=== PATIENT | male | born 1985 | race Caucasian/White ===

== ENCOUNTER 2023-11-10 08:27 | Emergency (ER) | payer OTHER, SELFPAY ==
[2023-11-10 08:27] VITALS: BP 149/95; PULSE 67; RESP 14; TEMP 36.6; O2SAT 100; BMI 30.6
--- NOTE | 2023-11-10 08:35 | EDS_ITS ---
HPI History of Present Illness Chief Complaint: Dental Detail of Chief Complaint: Left facial swelling Informant: patient Narrative Narrative: Patient present secondary to left-sided facial swelling. He states he woke early this morning with fullness and some numbness in the left side of his face. He finally got up around 5 AM and states his swelling has slightly worsened since that time. He presents here at 830 for evaluation. He denies recent dental problems or dental pain. No new medications, foods, soaps. He went to urgent care who was concerned for angioedema and sent him to the emergency room. He states he felt well when he went to bed last night. No recent facial trauma. He denies tongue fullness or difficulty breathing/swallowing. PFSH PFSH Medical History no medical history no medical history Home Medications prednisone 20 mg tablet 60 mg (3 x 20 mg) PO DAILY #12 TABLETS 11/10/23 [Rx Last Taken Unknown] Allergy/AdvReac Type Severity Reaction Status Date / Time No Known Allergies Allergy Verified 11/10/23 08:33 Social History Smoking Status: Never smoker ROS ROS ED Constitutional Constitutional ED: Denies chills or fever(s) Eyes Eyes: Denies discharge from eye(s) ENT ENT ED: Reports other Details: Facial swelling ; Denies discharge from eye(s), rhinorrhea or sore throat Cardiovascular Cardiovascular: Denies chest pain or palpitations Respiratory/Chest Respiratory/Chest: Denies cough or dyspnea Gastrointestinal Gastrointestinal: Denies abdominal pain, nausea or vomiting Musculoskeletal Musculoskeletal: Denies back pain or extremity pain Integumentary Denies rash Neurologic Neurologic: Denies headache(s) or weakness Psychiatric Psychiatric: Denies anxiety or depression Allergic/Immunologic Allergic/Immunologic ED: Denies lip swelling or urticaria EXAM Physical Exam Const Vital Signs: 11/10/23 08:27 Temperature 97.9 F Temperature Source Temporal Pulse Rate 67 Respiratory Rate 14 Blood Pressure 149/95 H Blood Pressure Mean 113 Pulse Ox 100 Oxygen Delivery Method Room Air Positive well nourished and well developed General Appearance ED: well developed HEENT Reports moist mucous membranes HEENT Narrative: Intraoral examination reveals no dental decay, gum edema. No dental tenderness. Edema noted to the left cheek and into the lower lip. Eyes EOMs intact bilaterally Neck no lymphadenopathy Chest Wall inspection of chest normal and palpation of chest normal Resp normal respiratory effort and clear to auscultation bilaterally Cardio regular rate and regular rhythm GI non-tender Palpation: soft Extremity normal to inspection Neuro oriented x3 and no sensory deficits noted Motor Exam: strength 5/5 throughout Psych mental status grossly normal Skin no rashes or lesions noted MDM MDM MDM Narrative Medical decision making narrative: IV line will be established. Patient be given Benadryl, Pepcid, and Solu- Medrol. Treatment and Re-Evaluation :: Patient was observed for 2 hours after medications given with frequent rechecks. Swelling is improved at this time but not completely resolved. He does not know of any new exposures, but I encouraged him to watch at home for any different foods or medications that he may have been exposed to. At this time it does not appear that he has a dental infection causing his symptoms. I will write him for 4 additional days of steroids. He will use Benadryl at home as well. Strict return instructions are given. Discharge Plan Triage Chief Complaint: Dental ED Provider: Sarah Pinto Dx/Rx/DC Orders Clinical Impression: Facial swelling, Allergic reaction Instructions: ED General Allergic Reactions, ED Angioedema Prescriptions: New prednisone 20 mg tablet 60 mg PO DAILY Qty: 12 0RF Primary Care Provider: Landen Echeverria Referrals: Landen Echeverria MD [Primary Care Provider] - 3-5 Days Omkar Schroeder MD [Non-Staff] - Disposition Disposition: Home, Self Care
[2023-11-10] MEDS: MethylPREDNISolone 125 MG/2 ML Vial IV (08:43)
[2023-11-10] MEDS: DiphenhydrAMINE 50 MG/ML Syringe 25 MG IV (08:43)
--- OUTSIDE RECORDS SUMMARY | 2023-11-10 08:53 | XMS RPT_ITS | CCD ---
Author Name Unknown Address [address] [place] [address] Organization [facility] Care Team Providers Care Literature Professor Name Role Phone Iker Funes MD Primary Care Provider IKER FUNES Attending IKER Hartman Primary Care Unavailab le ANGELICA CHERY Referring Unavailable IKER FUNES Primary Care Unavailab IKER Basilio Primary Care Unavailab IKER Basilio Primary Care Unavailab IKER Basilio Referring Unavailab IKER Basilio Primary Care Unavailab IKER Basilio Referring Unavailab IKER Basilio Referring Unavailab IKER Basilio Attending IKER Hartman Primary Care Unavailab IKER Basilio Referring Unavailab IKER Basilio Attending Unavailab IKER Basilio Primary Care Unavailab le Medications Current Medications Medication Drug Class(es) Dates Sig (Normalized) Sig (Original) benzonatate 100 mg oral capsule (3 sources) Non-narcotic Antitussive Start: 06-27-2022 End: 07-04-2022 take 1 capsule by mouth every eight hours as needed benzonatate (TESSALON PERLES) 100 mg capsule Take 1 capsule by mouth three times daily as needed for cough for up to 7 days. 21 capsule 0 06/27/2022 07/04/2022 Active Completed/Discontinued Medications Medication Drug Class(es) Dates Sig (Normalized) Sig (Original) cetirizine hydrochloride 10 mg oral tablet (6 sources) Histamine-1 Receptor Antagonist Start: 11-03-2019 End: 10-04-2023 take 1 tablet by mouth once daily cetirizine (ZYRTEC) 10 mg tablet Indications: Bronchitis Take 1 tablet by mouth once daily. 30 tablet 0 11/03/2019 10/04/2023 Discontinued Problems Problem Classification Problem Date Documented Da te Episodic/Chronic Other connective tissue disease (2 sources) Pain in finger of left hand; Translations: [Pain in left finger(s)] 09-13-2023 Episodic Other connective tissue disease (2 sources) Swelling of finger ; Translations: [Other specified soft tissue disorders] 09-14-2023 Episodic Other connective tissue disease (1 source) Other specified soft tissue disorders; Translations: [Swelling of left index finger] Onset: 10-04-2023 Episodic Other connective tissue disease (1 source) Pain in left finger(s); Translations: [Finger pain, left] Onset: 08-09-2023 Episodic Other male genital disorders (3 sources) Male erectile dysfunction, unspecified; Translations: [Impotence of organic origin] Onset: 10-09-2023 10-04-2023 Chronic Other male genital disorders (4 sources) Cyst of epididymis; Translations: [Cyst of epididymis] Onset: 10-04-2023 10-04-2023 Episodic Other nutritional; endocrine; and metabolic disorders (4 sources) Obese class I; Translations: [Obesity, unspecified] Onset: 10-04-2023 10-04-2023 Chronic Other upper respiratory infections (1 source) Sore throat symptom; Translations: [Acute pharyngitis, unspecified] Episodic Residual codes; unclassified (1 source) Other specified personal risk factors, not elsewhere classified; Translations: [Other specified personal history presenting hazards to health] Episodic Skin and subcutaneous tissue infections (2 sources) Cellulitis of finger of left hand; Translations: [Cellulitis of left finger] Onset: 08-14-2023 08-14-2023 Episodic Results Test Name Value Interpretation Reference Range Facil ity Vital Signs Date Time Vital Sign Value Performing Clinician Luis watson 10-04-2023 08:01-0500 Body weight 105.96 kg Iker Funes MD Work Phone: [facility] 10-04-2023 08:01-0500 Diastolic blood pressure 72 mm[Hg] Iker Funes MD Work Phone: [facility] 10-04-2023 08:01-0500 Heart rate 84 /min Iker Funes MD Work Phone: [facility] 10-04-2023 08:01-0500 Respiratory rate 16 /min Iker Funes MD Work Phone: [facility] 10-04-2023 08:01-0500 SaO2% (BldA) [Mass fraction] 98 % Iker Funes MD Work Phone: [facility] 10-04-2023 08:01-0500 Systolic blood pressure 116 mm[Hg] Iker Funes MD Work Phone: [facility] 09-14-2023 09:21-0400 Body temperature 97.5 [degF] Iker Funes MD Work Phone: [facility] 09-14-2023 09:21-0400 Body weight 104.51 kg Iker Funes MD Work Phone: [facility] 09-14-2023 09:21-0400 Diastolic blood pressure 76 mm[Hg] Iker Funes MD Work Phone: [facility] 09-14-2023 09:21-0400 Heart rate 84 /min Iker Funes MD Work Phone: [facility] 09-14-2023 09:21-0400 Respiratory rate 16 /min Iker Funes MD Work Phone: [facility] 09-14-2023 09:21-0400 SaO2% (BldA) [Mass fraction] 97 % Iker Funes MD Work Phone: [facility] 09-14-2023 09:21-0400 Systolic blood pressure 114 mm[Hg] Iker Funes MD Work Phone: [facility] 08-14-2023 08:21-0400 Body height 185.4 cm Iker Funes MD Work Phone: [facility] 08-14-2023 08:21-0400 Body temperature 97.9 [degF] Iker Funes MD Work Phone: [facility] 08-14-2023 08:21-0400 Body weight 105.23 kg Iker Funes MD Work Phone: [facility] 08-14-2023 08:21-0400 Diastolic blood pressure 74 mm[Hg] Iker Funes MD Work Phone: [facility] 08-14-2023 08:21-0400 Heart rate 74 /min Iker Funes MD Work Phone: [facility] 08-14-2023 08:21-0400 Respiratory rate 16 /min Iker Funes MD Work Phone: [facility] 08-14-2023 08:21-0400 Systolic blood pressure 118 mm[Hg] Iker Funes MD Work Phone: [facility] 06-27-2022 17:22-0400 Body temperature 98.29 [degF] Malou Villagomez APRN.BREAKER MACHINE OPERATOR Work Phone: [facility] 06-27-2022 17:22-0400 Body weight 102.51 kg Malou Villagomez APRN.BREAKER MACHINE OPERATOR Work Phone: [facility] 06-27-2022 17:22-0400 Diastolic blood pressure 70 mm[Hg] Malou Villagomez APRN.BREAKER MACHINE OPERATOR Work Phone: [facility] 06-27-2022 17:22-0400 Heart rate 86 /min Malou Villagomez APRN.BREAKER MACHINE OPERATOR Work Phone: [facility] 06-27-2022 17:22-0400 Respiratory rate 16 /min Malou Villagomez APRN.BREAKER MACHINE OPERATOR Work Phone: [facility] 06-27-2022 17:22-0400 SaO2% (BldA) [Mass fraction] 97 % Malou Villagomez APRN.BREAKER MACHINE OPERATOR Work Phone: [facility] 06-27-2022 17:22-0400 Systolic blood pressure 126 mm[Hg] Malou Villagomez APRN.BREAKER MACHINE OPERATOR Work Phone: [facility] Encounters Encounter Date Encounter Type Care Provider Facility Start: 10-15-2023 Telephone encounter Landen Funes MD Work Phone: [facility] Procedures Date Procedure Procedure Detail Performing Clinician Start: 10-09-2023 Dup-scan artl inga abdl/pel/scrot&/rpr orgn com Iker Funes MD Work Phone: Start: 10-09-2023 Us scrotum & contents C hramna Funes MD Work Phone: Start: 10-04-2023 Lipid 1996 panel - S albaro or Plasma Iker Funes MD Work Phone: Start: 09-13-2023 Blood count complete auto&auto difrntl wbc Iker Funes MD Work Phone: Start: 06-27-2022 STREP A MOLECULAR (POC) Malou Villagomez APRN.BREAKER MACHINE OPERATOR Work Phone: Start: 06-08-2019 Adult depression screening assessment Malou Villagomez APRN.BREAKER MACHINE OPERATOR Work Phone: Start: 10-01-2018 Lipid 1996 panel - S albaro or Plasma Iker Funes MD Work Phone: Plan of Treatment Date Care Activity Detail Author Start: 10-04-2028 Lipid 1996 panel - S albaro or Plasma Lipid Screening [facility] Start: 09-01-2028 Urine microalbumin profile [facility] Start: 10-04-2024 Covid-19 Vaccine (#1) Covid-19 Vacci ne (#1) [facility] Immunizations Immunization Date Immunization Notes Care Provider Fa cility 09-01-2018 tetanus toxoid, redu jagdeep diphtheria toxoid, and acellular pertussis vaccine, adsorbed Malou Villagomez APRN.BREAKER MACHINE OPERATOR Work Phone: [facility] 09-01-2018 influenza virus vaccine, unspecified formulation Iker Funes MD Work Phone: [facility] Payers Date Payer Category Payer Unknown [id number] 2022 Unknown [id number] 2021 Unknown [id number] 2021 Unknown [id number] Social History Date Type Detail Facility Start: 06-27-2022 End: 10-04-2023 Tobacco smoking status NHIS Never smoked tobacco [facility] Work Phone: Start: 06-27-2022 Tobacco use and exposure Formstefano r smokeless tobacco user [facility] Work Phone: End: 09-11-2018 History of tobacco use Chews Tobacco [facility] Work Phone: Start: 06-27-2022 End: 08-14-2023 Alcohol intake Current drinker of alcohol (finding) [facility] Start: 06-27-2022 End: 08-14-2023 Alcohol intake [facility] Start: 09-15-2020 History SDOH Alcohol Frequency 3 [facility] Start: 09-15-2020 History SDOH Alcohol Std Drinks 1 [facility] Start: 09-15-2020 History SDOH Alcohol Binge 2 [facility] Start: 09-15-2020 History SDOH Social Connections Phone 5 [facility] Start: 09-15-2020 History SDOH Physica l Activity DPW 0 [facility] Start: 09-15-2020 Education 15 [facility] Start: 06-27-2022 Tobacco Comment 1/2-1 can per day [facility] Start: 1985 Sex Assigned At Not on file [facility] Start: 09-15-2020 End: 08-14-2023 Social connection and isolation panel [facility] Do you belong to any clubs or organizations such as voodoo groups, unions, fraternal or athletic groups, or school groups? No [facility] Are you now , , , , never or living with a partner? [facility] How often to you hav e a drink containing alcohol? 2-4 times a month [facility] How many standard dr inks containing alcohol do you have on a typical day? 1 or 2 [facility] How often do you hav e 6 or more drinks on 1 occasion? Less than monthly [facility] How hard is it for y ou to pay for the very basics like food, housing, medical care, and heating Not hard at all [facility] Do you feel stress - tense, restless, nervous, or anxious, or unable to sleep at night because your mind is troubled all the time - these days [OSQ] Very much [facility] (I/We) worried wheth er (my/our) food would run out before (I/we) got money to buy more. Never true [facility] Start: 10-04-2023 Tobacco use and exposure User of smokeless tobacco [facility] Start: 10-04-2023 Alcohol intake Ex-drinker (finding) [facility] Clinical Notes 06-27-2022 to 10-15-2023 Telephone Encounter - Christine Savage LPN - 10/15/2023 3:09 PM ESTTelephone Encounter - Christine Savage LPN - 10/15/2023 3:00 PM Sarika Moreno RDMS - 10/09/2023 7:00 AM EST Note Date & Type Note Facility 10-15-2023 Miscellaneous Notes Phoned patient and reviewed results and recommendations with him. Patient voiced understanding. ----- Message from Iker Fuens MD sent at 10/15/2023 2:52 PM EST ----- Normal testosterone level. Rheumatologic workup negative. Autoimmune disease testing negative. Other labs normal. Continue treatment as discussed in office. If finger swelling persists, would refer to rheumatology for further workup and treatment. documented in this encounter [facility] 10-09-2023 Note HNO ID: [id number] Author: Sarika Fox RDMS Service: ? Author Type: Machine Setter Sheet Metal Type: Progress Notes Filed: 10/09/2023 7:45 AM Note Text: Radiology Service Progress Note PATIENT NAME: Akil Gonzalez DATE OF SERVICE: October 09, 2023 TIME: 7:45 AM PATIENT IDENTITY VERIFICATION COMPLETED USING TWO (2) IDENTIFIERS: Name and Date of confirmed by patient verbally. FALL SCREENING: Has the patient had 2 falls in the last year or 1 fall with injury or currently using an Ambulatory Assistive Device (Walker, Cane, Wheelchair, Crutches, etc.)? No PATIENT GENDER DATA: Male PATIENT RELEVANT IMPLANT DATA REVIEWED: Not Applicable RADIOLOGY DEPARTMENT: Ultrasound PERIPHERAL IV DATA: Not applicable SIGNED BY: Sarika Fox RDMS October 09, 2023 7:45 AM [facility] 10-09-2023 History of Presen t illness Narrative Radiology Service Progress Note PATIENT NAME: Akil Gonzalez DATE OF SERVICE: October 09, 2023 TIME: 7:45 AM PATIENT IDENTITY VERIFICATION COMPLETED USING TWO (2) IDENTIFIERS: Name and Date of confirmed by patient verbally. FALL SCREENING: Has the patient had 2 falls in the last year or 1 fall with injury or currently using an Ambulatory Assistive Device (Walker, Cane, Wheelchair, Crutches, etc.)? No PATIENT GENDER DATA: Male PATIENT RELEVANT IMPLANT DATA REVIEWED: Not Applicable RADIOLOGY DEPARTMENT: Ultrasound PERIPHERAL IV DATA: Not applicable SIGNED BY: Sarika Fox RDMS October 09, 2023 7:45 AM documented in this encounter [facility] 10-04-2023 Note HNO ID: [id number] Author: Iker Funes MD Service: ? Author Type: Physician Type: Progress Notes Filed: 10/05/2023 4:20 PM Note Text: Chief Complaint Patient presents with: Physical HPI Akil Gonzalez is a 38 year old male who presents here today for Above Complaints.. States that the left finger swelling did improved with 40 mg prednisone x 7 days, but after finish burst the swelling has returned. No pain, fever, erythema, or new injury. Recent labs unremarkable. No recent headaches. Denies recent allergy symptoms. C/o ED about 50% of the time which started about 1 year ago. Erection not as firm, but is able to achieve and maintain erection to achieve orgasm. Denies penile pain, swelling, rash, deformity, hematospermia. PHQ-2 / Depression screen He in the past two weeks denies having felt down, depressed, hopeless or with little interest or pleasure in doing things. Still chewing 1/2 can per day. Thinking about quitting. Discussed nicotine gum. Weight in obesity range. Does not exercise regularly, but is active at work and taking care of 2 acres at home. Drinks 1 can of pop per week. Eats fast food 2 times per month. Past medical history, appointments, medications, allergies reviewed. Previous Medical History PAST MEDICAL HISTORY Diagnosis Date Headache possible cluster Obesity (BMI 30.0-34.9) Previous Surgical History PAST SURGICAL HISTORY Procedure Laterality Date NONE Family History FAMILY HISTORY Problem Relation Age of Onset Headache Mother Heart Father 61 [place] Diabetes Paternal Grandfather Patient Allergies ALLERGIES No Known Allergies Current Medications Current Outpatient Medications on File Prior to Visit Medication Sig cetirizine (ZYRTEC) 10 mg tablet Take 1 tablet by mouth once daily. fluticasone (FLONASE) 50 mcg/actuation nasal spray Use 2 Sprays in each nostril once daily. Rinse mouth after use. naproxen (NAPROSYN) 500 mg tablet Take 1 tablet by mouth twice daily as needed for Pain (headache). Take with food. nicotine (NICODERM) 14 mg/24 hr Apply 1 Patch as directed every 24 hours. No smoking with patch. nicotine (NICODERM) 7 mg/24 hr Apply 1 Patch as directed every 24 hours. No current facility-administered medications on file prior to visit. Social History Social History Tobacco Use Smoking status: Never Smokeless tobacco: Current Types: Chew Tobacco comments: 1/2-1 can per day Substance Use Topics Alcohol use: Yes Alcohol/week: 2.0 standard drinks of alcohol Types: 2 Cans of Beer (12oz) per week Drug use: No Review of Symptoms REVIEW OF SYSTEMS GENERAL: No weight loss, malaise or fevers HEENT: Negative for frequent or significant headaches, No changes in hearing or vision, no nose bleeds or other nasal problems NECK: Negative for lumps, goiter, pain and significant neck swelling RESPIRATORY: Negative for cough, hemoptysis, wheezing, COPD, dyspnea or shortness of breath CARDIOVASCULAR: Negative for chest pain, leg swelling, hypertension, CHF or palpitations GI: No nausea, vomiting, or diarrhea : No history of dysuria, frequency or incontinence MUSCULOSKELETAL: See HPI SKIN: Negative for lesions, rash, and itching PSYCH: Negative for sleep disturbance, mood disorder and recent psychosocial stressors HEMATOLOGY/LYMPHOLOGY: Negative for prolonged bleeding, bruising easily or swollen nodes ENDOCRINE: Negative for cold or heat intolerance, polyuria, polydipsia and goiter NEURO: No history of headaches, syncope, paralysis, seizures or tremors EXAM: BP 116/72 Pulse 84 Resp 16 Wt 106 kg (233 lb 9.6 oz) SpO2 98% BMI 30.82 kg/m? General Appearance: Well appearing, alert, in no acute distress, well-hydrated, well nourished.. Skin: Skin color, texture, turgor normal, no suspicious rashes or lesions. Head: Normocephalic, no masses, lesions, tenderness or abnormalities. Eyes: Anicteric sclera. Pupils are equally round and reactive to light. Extraocular movements are intact. . Ears: External ears normal, canals clear. Nose/Sinuses: Nares normal, septum midline, mucosa normal, no drainage or sinus tenderness. Oropharynx: Lips, mucosa, and tongue normal, teeth and gums normal, oropharynx normal. Neck: Supple, no adenopathy; thyroid symmetric, normal size, no bruits. Lungs: Lungs clear to auscultation. No wheezing, rhonchi, rales.. Heart: RRR without murmur, gallop, or rubs. No ectopy. Abdomen: Normal abdominal exam, Abdomen soft, non-tender. Bowel sounds normal. No masses, organomegaly. Genitalia: Normal except for epididymal cysts bilaterally with right testicle larger than left. 3 Extremities: No deformities, edema, skin discoloration, clubbing or cyanosis. Good capillary refill. . Peripheral Pulses: Normal. Neurologic: Gait normal. Reflexes normal and symmetric. Sensation grossly intact.. Lymph Nodes: No cervical lymphadenopathy and No supraclavi (more content not included)... [facility] 10-04-2023 History of Presen t illness Narrative Chief Complaint Patient presents with: Physical HPI Akil Gonzalez is a 38 year old male who presents here today for Above Complaints.. States that the left finger swelling did improved with 40 mg prednisone x 7 days, but after finish burst the swelling has returned. No pain, fever, erythema, or new injury. Recent labs unremarkable. No recent headaches. Denies recent allergy symptoms. C/o ED about 50% of the time which started about 1 year ago. Erection not as firm, but is able to achieve and maintain erection to achieve orgasm. Denies penile pain, swelling, rash, deformity, hematospermia. PHQ-2 / Depression screen He in the past two weeks denies having felt down, depressed, hopeless or with little interest or pleasure in doing things. Still chewing 1/2 can per day. Thinking about quitting. Discussed nicotine gum. Weight in obesity range. Does not exercise regularly, but is active at work and taking care of 2 acres at home. Drinks 1 can of pop per week. Eats fast food 2 times per month. Past medical history, appointments, medications, allergies reviewed. Previous Medical History PAST MEDICAL HISTORY Diagnosis Date Headache possible cluster Obesity (BMI 30.0-34.9) Previous Surgical History PAST SURGICAL HISTORY Procedure Laterality Date NONE Family History FAMILY HISTORY Problem Relation Age of Onset Headache Mother Heart Father 61 [place] Diabetes Paternal Grandfather Patient Allergies ALLERGIES No Known Allergies Current Medications Current Outpatient Medications on File Prior to Visit Medication Sig cetirizine (ZYRTEC) 10 mg tablet Take 1 tablet by mouth once daily. fluticasone (FLONASE) 50 mcg/actuation nasal spray Use 2 Sprays in each nostril once daily. Rinse mouth after use. naproxen (NAPROSYN) 500 mg tablet Take 1 tablet by mouth twice daily as needed for Pain (headache). Take with food. nicotine (NICODERM) 14 mg/24 hr Apply 1 Patch as directed every 24 hours. No smoking with patch. nicotine (NICODERM) 7 mg/24 hr Apply 1 Patch as directed every 24 hours. No current facility-administered medications on file prior to visit. Social History Social History Tobacco Use Smoking status: Never Smokeless tobacco: Current Types: Chew Tobacco comments: 1/2-1 can per day Substance Use Topics Alcohol use: Yes Alcohol/week: 2.0 standard drinks of alcohol Types: 2 Cans of Beer (12oz) per week Drug use: No Review of Symptoms REVIEW OF SYSTEMS GENERAL: No weight loss, malaise or fevers HEENT: Negative for frequent or significant headaches, No changes in hearing or vision, no nose bleeds or other nasal problems NECK: Negative for lumps, goiter, pain and significant neck swelling RESPIRATORY: Negative for cough, hemoptysis, wheezing, COPD, dyspnea or shortness of breath CARDIOVASCULAR: Negative for chest pain, leg swelling, hypertension, CHF or palpitations GI: No nausea, vomiting, or diarrhea : No history of dysuria, frequency or incontinence MUSCULOSKELETAL: See HPI SKIN: Negative for lesions, rash, and itching PSYCH: Negative for sleep disturbance, mood disorder and recent psychosocial stressors HEMATOLOGY/LYMPHOLOGY: Negative for prolonged bleeding, bruising easily or swollen nodes ENDOCRINE: Negative for cold or heat intolerance, polyuria, polydipsia and goiter NEURO: No history of headaches, syncope, paralysis, seizures or tremors EXAM: BP 116/72 Pulse 84 Resp 16 Wt 106 kg (233 lb 9.6 oz) SpO2 98% BMI 30.82 kg/m General Appearance: Well appearing, alert, in no acute distress, well-hydrated, well nourished.. Skin: Skin color, texture, turgor normal, no suspicious rashes or lesions. Head: Normocephalic, no masses, lesions, tenderness or abnormalities. Eyes: Anicteric sclera. Pupils are equally round and reactive to light. Extraocular movements are intact. . Ears: External ears normal, canals clear. Nose/Sinuses: Nares normal, septum midline, mucosa normal, no drainage or sinus tenderness. Oropharynx: Lips, mucosa, and tongue normal, teeth and gums normal, oropharynx normal. Neck: Supple, no adenopathy; thyroid symmetric, normal size, no bruits. Lungs: Lungs clear to auscultation. No wheezing, rhonchi, rales.. Heart: RRR without murmur, gallop, or rubs. No ectopy. Abdomen: Normal abdominal exam, Abdomen soft, non-tender. Bowel sounds normal. No masses, organomegaly. Genitalia: Normal except for epididymal cysts bilaterally with right testicle larger than left. 3 Extremities: No deformities, edema, skin discoloration, clubbing or cyanosis. Good capillary refill. . Peripheral Pulses: Normal. Neurologic: Gait normal. Reflexes normal and symmetric. Sensation grossly intact.. Lymph Nodes: No cervical lymphadenopathy and No supraclavicular lymphadenopathy. Health Maintenance List Hepatitis B Vaccine(1 of 3 - 3-dose series) Never done Covid-19 Vaccine(1) Never done Hepatitis C Screening Never done HIV Screening Never done Depression Assessment Never done Lipid Screening due on 10/01/2023 Influenza Vaccine(1) due on 05/10/2024 DTaP,Tdap,Td Vaccine(2 - Td or Tdap) due on 09/01/2028 HPV Vaccine Aged Out Data reviewed Component Latest Ref Rng & Units 09/13/2023 WBC 3.70 - 11.00 k/uL 5.86 RBC 4.20 - 6.00 m/uL 5.37 Hemoglobin 13.0 - 17.0 g/dL 16.1 Hematocrit 39.0 - 51.0 % 48.7 MCV 80.0 - 100.0 fL 90.7 MCH 26.0 - 34.0 pg 30.0 MCHC 30.5 - 36.0 g/dL 33.1 RDW-CV 11.5 - 15.0 % 12.1 Platelet Count 150 - 400 k/uL 242 MPV 9.0 - 12.7 fL 9.8 Neut% % 53.3 Abs Neut (ANC) 1.45 - 7.50 k/uL 3.13 Lymph% % 32.6 Abs Lymph 1.00 - 4.00 k/uL 1.91 Mcmullen% % 10.1 Abs Mcmullen <0.87 k/uL 0.59 Eosin% % 2.9 Abs Eosin <0.46 k/uL 0.17 Baso% % 0.9 Abs Baso <0.11 k/uL 0.05 Immature Gran % % 0.2 IMMATURE GRANS (ABS) <0.10 k/uL <0.03 NRBC /100 WBC 0.0 Absolute nRBC <0.01 k/uL <0.01 DTYPE Auto Protein, Total 6.3 - 8.0 g/dL 7.5 Albumin 3.9 - 4.9 g/dL 4.5 Calcium 8.5 - 10.2 mg/dL 10.0 Bilirubin, Total 0.2 - 1.3 mg/dL 0.3 Alkaline Phosphatase 38 - 113 U/L 73 AST 14 - 40 U/L 29 ALT 10 - 54 U/L 36 Glucose 74 - 99 mg/dL 88 BUN 9 - 24 mg/dL 15 Creatinine 0.73 - 1.22 mg/dL 1.01 Sodium 136 - 144 mmol/L 140 Potassium 3.7 - 5.1 mmol/L 4.4 Chloride 97 - 105 mmol/L 103 CO2 22 - 30 mmol/L 24 Anion Gap 9 - 18 mmol/L 13 eGFR >=60 mL/min/1.73m 96 WSR 0 - 15 mm/hr 2 Uric Acid 4.0 - 8.1 mg/dL 5.4 ASSESSMENT/PLAN: 1. Annual physical exam - ICD9: V70.0, ICD10: Z00.00 (primary diagnosis) - Counseled on healthy diet and regular exercise - Discussed need for and benefit of weight loss. BMI 30.82 kg/(m^2) - Follow up for annual exam in one year - LIPID PANEL BASIC - DEPRESSION SCREENING/ASSESSMENT - TESTOSTERONE, FREE AND TOTAL - TSH BLD 2. Obesity (BMI 30.0-34.9) - ICD9: 278.00, ICD10: E66.9 3. Epididymal cyst - ICD9: 608.89, ICD10: N50.3 Benign. Repeat US due to enlarged right testicle. 4. Erectile dysfunction, unspecified erectile dysfunction type - ICD9: 607.84, ICD10: N52.9 Start workup and viagra PRN. - LIPID PANEL BASIC - TESTOSTERONE, FREE AND TOTAL - TSH BLD - US SCROTUM AND CONTENTS - US DOPPLER COMPLETE - SILDENAFIL 50 MG TABLET 5. Swelling of left index finger - ICD9: 729.81, ICD10: M79.89 Unknown cause. Workup so far unremarkable. Recheck for gout and start RA and autoimmune workup. Will give longer prednisone taper and refer to rheumatology if not resolved. - PREDNISONE 10 MG TABLET - RHEUMATOID FACTOR BL - SALLY BLOOD - C-REACTIVE PROTEIN (CRP) - URIC ACID BLOOD - CBC + DIFF 6. Finger pain, left - ICD9: 729.5, ICD10: M79.645 See above. - PREDNISONE 10 MG TABLET - RHEUMATOID FACTOR BL - SALLY BLOOD - C-REACTIVE PROTEIN (CRP) - URIC ACID BLOOD - CBC + DIFF Iker Funes MD documented in this encounter [facility] 09-16-2023 Miscellaneous Notes Phoned patient and reviewed results and recommendations with him. Patient voiced understanding. ----- Message from Iker Funes MD sent at 09/14/2023 8:02 AM EDT ----- Blood work is negative for signs of infection, inflammation, or gout. Continue prednisone as prescribed. Call if swelling and pain persists. documented in this encounter [facility] 09-14-2023 Note HNO ID: [id number] Author: Iker Funes MD Service: ? Author Type: Physician Type: Progress Notes Filed: 09/14/2023 9:26 AM Note Text: Chief Complaint Patient presents with: Finger Pain HPI Akil Gonzalez is a 38 year old male who presents here today for Above Complaints.. Patient complaining of continued pain and swelling with limited flexion of left index finger for 2 months. Did not improve with previous abx rx. Xrays in July were negative aside from swelling. No new injury. No taking anything OTC for pain. Denies other joint pain/swelling, fever/chills, erythema, warmth to touch. Past medical history, appointments, medications, allergies reviewed. Previous Medical History PAST MEDICAL HISTORY Diagnosis Date Headache possible cluster Obesity (BMI 30.0-34.9) Previous Surgical History PAST SURGICAL HISTORY Procedure Laterality Date NONE Family History FAMILY HISTORY Problem Relation Age of Onset Headache Mother Heart Father 61 [place] Diabetes Paternal Grandfather Patient Allergies ALLERGIES No Known Allergies Current Medications Current Outpatient Medications on File Prior to Visit Medication Sig cetirizine (ZYRTEC) 10 mg tablet Take 1 tablet by mouth once daily. fluticasone (FLONASE) 50 mcg/actuation nasal spray Use 2 Sprays in each nostril once daily. Rinse mouth after use. nicotine (NICODERM) 14 mg/24 hr Apply 1 Patch as directed every 24 hours. No smoking with patch. nicotine (NICODERM) 7 mg/24 hr Apply 1 Patch as directed every 24 hours. naproxen (NAPROSYN) 500 mg tablet Take 1 tablet by mouth twice daily as needed for Pain (headache). Take with food. No current facility-administered medications on file prior to visit. Social History Social History Tobacco Use Smoking status: Never Smokeless tobacco: Former Types: Chew Quit date: 09/11/2018 Tobacco comments: 1/2-1 can per day Substance Use Topics Alcohol use: Yes Alcohol/week: 5.0 standard drinks of alcohol Types: 2 Cans of Beer (12oz) per week Drug use: No Review of Symptoms REVIEW OF SYSTEMS See HPI EXAM: BP 114/76 Pulse 84 Temp 36.4 ?C (97.5 ?F) Resp 16 Wt 104.5 kg (230 lb 6.4 oz) SpO2 97% BMI 30.40 kg/m? General Appearance: Well appearing, alert, in no acute distress, well-hydrated, well nourished.. Skin: Skin color, texture, turgor normal, no suspicious rashes or lesions. Musculoskeletal: left index finger swollen with limited flexion and TTP over MCP and PIP joint. Health Maintenance List Hepatitis B Vaccine(1 of 3 - 3-dose series) Never done Covid-19 Vaccine(1) Never done Hepatitis C Screening Never done HIV Screening Never done Depression Assessment Never done Lipid Screening due on 10/01/2023 Influenza Vaccine(1) due on 05/10/2024 DTaP,Tdap,Td Vaccine(2 - Td or Tdap) due on 09/01/2028 HPV Vaccine Aged Out Data reviewed XR DIGIT GENERAL 3V FRONTAL/LAT/OBL LEFT IMPRESSION: Mild soft tissue swelling in the second digit. No acute fracture seen. ASSESSMENT/PLAN: 1. Finger pain, left - ICD9: 729.5, ICD10: M79.645 (primary diagnosis) Possible gout vs arthritis. Will treat with prednisone 40 mg PO daily x 7 days. Obtain labs as ordered. Call if not improving in 1 week. Rx hand written as system was down at the time of this visit. - COMP METABOLIC PANEL - CBC + DIFF - SED RATE WESTERGREN - URIC ACID BLOOD 2. Swelling of left index finger - ICD9: 729.81, ICD10: M79.89 See above. Iker Funes MD [facility] 09-14-2023 History of Presen t illness Narrative Chief Complaint Patient presents with: Finger Pain HPI Akil Gonzalez is a 38 year old male who presents here today for Above Complaints.. Patient complaining of continued pain and swelling with limited flexion of left index finger for 2 months. Did not improve with previous abx rx. Xrays in July were negative aside from swelling. No new injury. No taking anything OTC for pain. Denies other joint pain/swelling, fever/chills, erythema, warmth to touch. Past medical history, appointments, medications, allergies reviewed. Previous Medical History PAST MEDICAL HISTORY Diagnosis Date Headache possible cluster Obesity (BMI 30.0-34.9) Previous Surgical History PAST SURGICAL HISTORY Procedure Laterality Date NONE Family History FAMILY HISTORY Problem Relation Age of Onset Headache Mother Heart Father 61 [place] Diabetes Paternal Grandfather Patient Allergies ALLERGIES No Known Allergies Current Medications Current Outpatient Medications on File Prior to Visit Medication Sig cetirizine (ZYRTEC) 10 mg tablet Take 1 tablet by mouth once daily. fluticasone (FLONASE) 50 mcg/actuation nasal spray Use 2 Sprays in each nostril once daily. Rinse mouth after use. nicotine (NICODERM) 14 mg/24 hr Apply 1 Patch as directed every 24 hours. No smoking with patch. nicotine (NICODERM) 7 mg/24 hr Apply 1 Patch as directed every 24 hours. naproxen (NAPROSYN) 500 mg tablet Take 1 tablet by mouth twice daily as needed for Pain (headache). Take with food. No current facility-administered medications on file prior to visit. Social History Social History Tobacco Use Smoking status: Never Smokeless tobacco: Former Types: Chew Quit date: 09/11/2018 Tobacco comments: 1/2-1 can per day Substance Use Topics Alcohol use: Yes Alcohol/week: 5.0 standard drinks of alcohol Types: 2 Cans of Beer (12oz) per week Drug use: No Review of Symptoms REVIEW OF SYSTEMS See HPI EXAM: BP 114/76 Pulse 84 Temp 36.4 C (97.5 F) Resp 16 Wt 104.5 kg (230 lb 6.4 oz) SpO2 97% BMI 30.40 kg/m General Appearance: Well appearing, alert, in no acute distress, well-hydrated, well nourished.. Skin: Skin color, texture, turgor normal, no suspicious rashes or lesions. Musculoskeletal: left index finger swollen with limited flexion and TTP over MCP and PIP joint. Health Maintenance List Hepatitis B Vaccine(1 of 3 - 3-dose series) Never done Covid-19 Vaccine(1) Never done Hepatitis C Screening Never done HIV Screening Never done Depression Assessment Never done Lipid Screening due on 10/01/2023 Influenza Vaccine(1) due on 05/10/2024 DTaP,Tdap,Td Vaccine(2 - Td or Tdap) due on 09/01/2028 HPV Vaccine Aged Out Data reviewed XR DIGIT GENERAL 3V FRONTAL/LAT/OBL LEFT IMPRESSION: Mild soft tissue swelling in the second digit. No acute fracture seen. ASSESSMENT/PLAN: 1. Finger pain, left - ICD9: 729.5, ICD10: M79.645 (primary diagnosis) Possible gout vs arthritis. Will treat with prednisone 40 mg PO daily x 7 days. Obtain labs as ordered. Call if not improving in 1 week. Rx hand written as system was down at the time of this visit. - COMP METABOLIC PANEL - CBC + DIFF - SED RATE WESTERGREN - URIC ACID BLOOD 2. Swelling of left index finger - ICD9: 729.81, ICD10: M79.89 See above. Iker Funes MD documented in this encounter [facility] 08-14-2023 Note HNO ID: [id number] Author: Iker Funes MD Service: ? Author Type: Physician Type: Progress Notes Filed: 08/14/2023 8:49 AM Note Text: Chief Complaint Patient presents with: [facility] Care follow up, L 1st digit cellulitis HPI Akil Gonzalez is a 38 year old male who presents here today for Above Complaints.. Evaluated in on 08/09 for 3 day history of left finger pain and swelling after getting stung by catfish rick 3 weeks prior. Diagnosed with cellulitis and was started on Keflex. Xray negative for fracture. Since discharge home, has been taking abx as prescribed without side effects. States that the pain and swelling is slowly improving. Redness improving. Denies fever/chills, drainage. Past medical history, appointments, medications, allergies reviewed. 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 cetirizine (ZYRTEC) 10 mg tablet Take 1 tablet by mouth once daily. fluticasone (FLONASE) 50 mcg/actuation nasal spray Use 2 Sprays in each nostril once daily. Rinse mouth after use. nicotine (NICODERM) 14 mg/24 hr Apply 1 Patch as directed every 24 hours. No smoking with patch. nicotine (NICODERM) 7 mg/24 hr Apply 1 Patch as directed every 24 hours. naproxen (NAPROSYN) 500 mg tablet Take 1 tablet by mouth twice daily as needed for Pain (headache). Take with food. No current facility-administered medications on file prior to visit. Social History Social History Tobacco Use Smoking status: Never Smokeless tobacco: Former Types: Chew Quit date: 09/11/2018 Tobacco comments: 1/2-1 can per day Substance Use Topics Alcohol use: Yes Alcohol/week: 5.0 standard drinks of alcohol Types: 2 Cans of Beer (12oz) per week Drug use: No Review of Symptoms REVIEW OF SYSTEMS See HPI EXAM: BP 118/74 Pulse 74 Temp 36.6 ?C (97.9 ?F) Resp 16 Ht 185.4 cm (6' 1 ) Wt 105.2 kg (232 lb) BMI 30.61 kg/m? General Appearance: Well appearing, alert, in no acute distress, well-hydrated, well nourished.. Skin: Skin color, texture, turgor normal, no suspicious rashes or lesions. Musculoskeletal: No joint deformity, or tenderness. Mild swelling of left index finger without erythema, bruising, or abscess. Mildly limited flexion due to swelling without pain. Health Maintenance List Hepatitis B Vaccine(1 of 3 - 3-dose series) Never done Covid-19 Vaccine(1) Never done Hepatitis C Screening Never done HIV Screening Never done Depression Assessment Never done Influenza Vaccine(1) due on 07/12/2023 Lipid Screening due on 10/01/2023 DTaP,Tdap,Td Vaccine(2 - Td or Tdap) due on 09/01/2028 HPV Vaccine Aged Out ASSESSMENT/PLAN: 1. Cellulitis of left finger - ICD9: 681.00, ICD10: L03.012 Improving cellulitis - Continue treatment with Cephalaxin (Keflex) - No lymphangetic streaking, this was defined for patient to watch for and to seek medical care immediately if appears - Follow up for recheck in prn Iker Funes MD [facility] 08-14-2023 History of Presen t illness Narrative Chief Complaint Patient presents with: [facility] follow up, L 1st digit cellulitis HPI Akil Gonzalez is a 38 year old male who presents here today for Above Complaints.. Evaluated in on 08/09 for 3 day history of left finger pain and swelling after getting stung by catfish rick 3 weeks prior. Diagnosed with cellulitis and was started on Keflex. Xray negative for fracture. Since discharge home, has been taking abx as prescribed without side effects. States that the pain and swelling is slowly improving. Redness improving. Denies fever/chills, drainage. Past medical history, appointments, medications, allergies reviewed. 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 cetirizine (ZYRTEC) 10 mg tablet Take 1 tablet by mouth once daily. fluticasone (FLONASE) 50 mcg/actuation nasal spray Use 2 Sprays in each nostril once daily. Rinse mouth after use. nicotine (NICODERM) 14 mg/24 hr Apply 1 Patch as directed every 24 hours. No smoking with patch. nicotine (NICODERM) 7 mg/24 hr Apply 1 Patch as directed every 24 hours. naproxen (NAPROSYN) 500 mg tablet Take 1 tablet by mouth twice daily as needed for Pain (headache). Take with food. No current facility-administered medications on file prior to visit. Social History Social History Tobacco Use Smoking status: Never Smokeless tobacco: Former Types: Chew Quit date: 09/11/2018 Tobacco comments: 1/2-1 can per day Substance Use Topics Alcohol use: Yes Alcohol/week: 5.0 standard drinks of alcohol Types: 2 Cans of Beer (12oz) per week Drug use: No Review of Symptoms REVIEW OF SYSTEMS See HPI EXAM: BP 118/74 Pulse 74 Temp 36.6 C (97.9 F) Resp 16 Ht 185.4 cm (6' 1 ) Wt 105.2 kg (232 lb) BMI 30.61 kg/m General Appearance: Well appearing, alert, in no acute distress, well-hydrated, well nourished.. Skin: Skin color, texture, turgor normal, no suspicious rashes or lesions. Musculoskeletal: No joint deformity, or tenderness. Mild swelling of left index finger without erythema, bruising, or abscess. Mildly limited flexion due to swelling without pain. Health Maintenance List Hepatitis B Vaccine(1 of 3 - 3-dose series) Never done Covid-19 Vaccine(1) Never done Hepatitis C Screening Never done HIV Screening Never done Depression Assessment Never done Influenza Vaccine(1) due on 07/12/2023 Lipid Screening due on 10/01/2023 DTaP,Tdap,Td Vaccine(2 - Td or Tdap) due on 09/01/2028 HPV Vaccine Aged Out ASSESSMENT/PLAN: 1. Cellulitis of left finger - ICD9: 681.00, ICD10: L03.012 Improving cellulitis - Continue treatment with Cephalaxin (Keflex) - No lymphangetic streaking, this was defined for patient to watch for and to seek medical care immediately if appears - Follow up for recheck in prn Iker Funes MD documented in this encounter [facility] 08-09-2023 Note HNO ID: [id number] Author: Angelica Chery PA-C Service: ? Author Type: Physician Precision Honer Type: Progress Notes Filed: 08/09/2023 5:36 PM Note Text: This note was created using NoteWriter. Subjective Akil Gonzalez is a 38 year old male. HPI Patient presents with left finger pain over the past 3 days. She had been stung with a catfish rick 3 weeks ago. He had about 24 hours with pain within the past few days he has had increased swelling. 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 Denies any new injuries. No fever or chills. No history of MRSA. Review of Systems Constitutional: Negative. HENT: Negative. Respiratory: Negative. Musculoskeletal: Left index finger swelling All other systems reviewed and are negative. PAST MEDICAL HISTORY Diagnosis Date Headache possible cluster Obesity (BMI 30.0-34.9) Current Outpatient Medications Medication Sig Dispense Refill cephALEXin (KEFLEX) 500 mg capsule Take 1 capsule by mouth four times daily for 10 days. 40 capsule 0 cetirizine (ZYRTEC) 10 mg tablet Take 1 tablet by mouth once daily. (Patient not taking: Reported on 06/27/2022) 30 tablet 0 fluticasone (FLONASE) 50 mcg/actuation nasal spray Use 2 Sprays in each nostril once daily. Rinse mouth after use. (Patient not taking: Reported on 06/15/2021 ) 1 Bottle 0 nicotine (NICODERM) 14 mg/24 hr Apply 1 Patch as directed every 24 hours. No smoking with patch. (Patient not taking: Reported on 06/12/2019 ) 30 Patch 0 nicotine (NICODERM) 7 mg/24 hr Apply 1 Patch as directed every 24 hours. 30 Patch 0 naproxen (NAPROSYN) 500 mg tablet Take 1 tablet by mouth twice daily as needed for Pain (headache). Take with food. (Patient not taking: Reported on 06/27/2022) 60 tablet 2 No current facility-administered medications for this visit. PAST SURGICAL HISTORY Procedure Laterality Date NONE FAMILY HISTORY Problem Relation Age of Onset Headache Mother Heart Father 61 [place] Diabetes Paternal Grandfather Social History Tobacco Use Smoking status: Never Smokeless tobacco: Former Types: Chew Quit date: 09/11/2018 Tobacco comments: 1/2-1 can per day Substance Use Topics Alcohol use: Yes Alcohol/week: 5.0 standard drinks of alcohol Types: 2 Cans of Beer (12oz) per week Drug use: No Objective BP 111/82 Pulse 76 Temp 36.6 ?C (97.9 ?F) Resp 18 Wt 104.6 kg (230 lb 9.6 oz) SpO2 99% BMI 30.42 kg/m? Physical Exam Vitals reviewed. Constitutional: Appearance: Normal appearance. HENT: Head: Normocephalic and atraumatic. Musculoskeletal: Hands: Comments: Has a healing puncture wound overlying the palmar side of the PIP of the second digit. There is some surrounding soft tissue swelling extending to the MCP on the hand. Mild erythema. Able to flex and extend at the MCP PIP and DIP but does have a little bit of creased range of motion of the PIP due to the swelling. Normal strength against resistance. No foreign body visualized. No lymphangitic streaking. Skin: General: Skin is warm and dry. Neurological: Mental Status: He is alert. Assessment and Plan ASSESSMENT/PLAN: 1. Finger pain, left - ICD9: 729.5, ICD10: M79.645 X-rays show no retained foreign body. I feel he does have a cellulitis. I will treat with Keflex. Recommended he have a follow-up with PCP next week. Red flags for ER care discussed. Patient agreeable. - XR DIGIT GENERAL 3V FRONTAL/LAT/OBL LEFT Angelica Chery PA-C [facility] 08-09-2023 Note HNO ID: [id number] Author: Jen Patten RT(Wil[place]) Service: ? 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 FALL SCREENING: Has the patient had 2 falls in the last year or 1 fall with injury or currently using an Ambulatory Assistive Device (Walker, Cane, Wheelchair, Crutches, etc.)? No PATIENT GENDER DATA: Male PATIENT RELEVANT IMPLANT DATA REVIEWED: Yes RADIOLOGY DEPARTMENT: General X-ray: Exam(s) Completed: Upper Extremity X-Ray(s): Fingers/Thumb, left Index PERIPHERAL IV DATA: Not applicable SIGNED BY: RT Constantine(R) August 09, 2023 4:46 PM [facility] 06-29-2022 Miscellaneous Notes Images from the original note were not included. Patient calling asking for his COVID test results. COVID WITH FLUA+B, ROUTINE Order: [id number] Status: Final result Visible to patient: Yes (not seen) Dx: Sore throat; At increased risk of exp... Specimen Information: UPPER RESPIRATORY TRACT SWAB; Nasal Swab 1 Result Note 1 Patient Communication Component Ref Range & Units 2 d ago COVID 19 Result Not Detected SARS-CoV-2 (Agent of COVID-19) Not Detected by RT-PCR or equivalent method. Comment: mario [id number] (EMILIANO)_EUA This test was developed and its performance characteristics determined by [facility] [place]. This test has been authorized by FDA under an Emergency Use Authorization (EUA). This test has been validated in accordance with the FDA's Guidance Document Policy for Diagnostics Testing in Laboratories Certified to Perform High Complexity Testing under CLIA prior to Emergency use Authorization for Coronavirus Disease 2019 during the Public Health Emergency issued on January 09, 2020. Test performed by [facility], [facility] [place], [facility] [place] [address]. Influenza A PCR Negative for Influenza A by RT-PCR Negative for Influenza A by RT-PCR Influenza B PCR Negative for Influenza B by RT-PCR Negative for Influenza B by RT-PCR Resulting Agency CCM Specimen Collected: 06/27/22 5:46 PM EDT Last Resulted: 06/28/22 7:17 AM EDT Lab Flowsheet Order Details View Encounter Lab and Collection Details Routing Result History View Encounter Conversation Result Care Coordination Result Notes Emi Cee PA-C 06/28/2022 8:21 AM EDT Back to Top Patient notified of negative COVID and Influenza test. Patient Communication Edit Comments Add Notifications Back to Top You tested negative for COVID and Influenza. If you were tested because you were having symptoms, please monitor these symptoms and for any worrisome symptoms, please call your primary care provider or schedule a visit with [facility]. Written by Emi Cee PA-C on 06/28/2022 8:21 AM EDT Result Information Flag: Normal Status: Final result (Resulted: 06/28/2022 7:17 AM) Provider Status: Reviewed Questions Order Question Answer Symptomatic: Yes Date of symptom onset: 06/25/2022 First Test: No Employed in healthcare: No Hospitalized: No Resident in a congregate care setting (nursing homes, psychiatric treatment facilities, group homes, board and care homes, homeless longterm, foster care or other setting): No : No Is patient a household member of a [facility] Caregiver/Employee? Collection Question Answer Bedded in ICU: COVID WITH FLUA+B, ROUTINE: Result Notes Emi Cee PA-C 06/28/2022 8:21 AM EDT Patient notified of negative COVID and Influenza test. Patient Release Status: This result is viewable by the patient in [place]. Routing History Priority Sent On From To Message Type 06/27/2022 5:42 PM Interface, Results II P Wstr Urg Care Provider Pool Results View [employer] Info COVID WITH FLUA+B, ROUTINE (Order #[id number]) on 06/27/22 CAP/CLIA/Joint Commission Regulatory Result Report COVID WITH FLUA+B, ROUTINE (Order #[id number]) on 06/27/22 COVID WITH FLUA+B, ROUTINE: Patient Communication Edit Comments Add Notifications You tested negative for COVID and Influenza. If you were tested because you were having symptoms, please monitor these symptoms and for any worrisome symptoms, please call your primary care provider or schedule a visit with [facility]. Written by Emi Cee PA-C on 06/28/2022 8:21 AM EDT Went over results, notes from [facility] provider with understanding. documented in this encounter [facility] 06-27-2022 History of Presen t illness Narrative CC: Patient presents with: Head Congestion: cough and sore throat x 3 days HPI: Akil Gonzalez is a 37 year old male who presents to the office with complaint of head congestion, cough, nonproductive, and sore throat for a few days. Symptoms are staying the same. Associated symptoms includes sore throat. Denies body aches, fever, nausea, vomiting , and diarrhea. Treatments tried include nothing so far. with no relief of symptoms. Sick contacts: unknown. History of asthma, frequent episodes of bronchitis, chronic bronchitis, bronchiectasis or COPD: No Smoker: No Seasonal/environmental allergies: No The ROS is otherwise negative. The patient's pmh, medications, allergies, and past visits are reviewed. PHYSICAL EXAM: BP 126/70 Pulse 86 Temp 36.8 C (98.3 F) Resp 16 Wt 102.5 kg (226 lb) SpO2 97% BMI 29.82 kg/m General appearance: alert, cooperative, pleasant, in no acute distress Head: Normocephalic Eyes: EOM's intact, conjunctiva pink and moist, no icterus, sclera white, non-injected Ears: Right ear: External ear/canal- Normal, TM - clear with good landmarks. Left ear: External ear/canal- Normal, TM - clear with good landmarks Oropharynx:moderate erythema, without exudates present Heart: Negative. RRR without obvious murmur, gallop, or rubs. No ectopy. Lungs: clear to auscultation, without rales or wheeze, good air exchange PAST MEDICAL HISTORY Diagnosis Date Headache possible cluster Obesity (BMI 30.0-34.9) PAST SURGICAL HISTORY Procedure Laterality Date NONE ALLERGIES Patient has no known allergies. MEDICATIONS cetirizine (ZYRTEC) 10 mg tablet Take 1 tablet by mouth once daily. (Patient not taking: Reported on 06/27/2022) fluticasone (FLONASE) 50 mcg/actuation nasal spray Use 2 Sprays in each nostril once daily. Rinse mouth after use. (Patient not taking: Reported on 06/15/2021 ) benzonatate (TESSALON PERLE) 100 mg capsule Take 2 capsules by mouth three times daily as needed. (Patient not taking: Reported on 06/15/2021 ) nicotine (NICODERM) 14 mg/24 hr Apply 1 Patch as directed every 24 hours. No smoking with patch. (Patient not taking: Reported on 06/12/2019 ) nicotine (NICODERM) 7 mg/24 hr Apply 1 Patch as directed every 24 hours. naproxen (NAPROSYN) 500 mg tablet Take 1 tablet by mouth twice daily as needed for Pain (headache). Take with food. (Patient not taking: Reported on 06/27/2022) FAMILY HISTORY Problem Relation Age of Onset Headache Mother Heart Father 61 [place] Diabetes Paternal Grandfather Social History Tobacco Use Smoking status: Never Smokeless tobacco: Former Types: Chew Quit date: 09/11/2018 Tobacco comments: 1/2-1 can per day Substance Use Topics Alcohol use: Yes Alcohol/week: 5.0 standard drinks Types: 2 Cans of Beer (12oz) per week Drug use: No ASSESSMENT/PLAN: 1. Sore throat - ICD9: 462, ICD10: J02.9 (primary diagnosis) - STREP A MOLECULAR (POC) - negative - COVID WITH FLUA+B, ROUTINE 2. At increased risk of exposure to COVID-19 virus - ICD9: V15.89, ICD10: Z91.89 - COVID WITH FLUA+B, ROUTINE Tessalon francisco, prednisone daily for 5 days Prescription instructions reviewed with patient as applicable. Potential red flag symptoms discussed with the patient. Reviewed appropriate action plan to take if red flag symptoms occur. Patient agreeable to treatment plan. Malou Villagomez APRN.BREAKER MACHINE OPERATOR documented in this encounter [facility] Diagnosis Cellulitis of left finger- Primary [facility] Diagnosis Finger pain, left- Primary Pain in limb Swelling of left index finger [facility] Diagnosis Annual physical exam- Primary Routine general medical examination at a health care facility Obesity (BMI 30.0-34.9) Obesity, unspecified Epididymal cyst Other specified disorder of male genital organs Erectile dysfunction, unspecified erectile dysfunction type Swelling of left index finger Finger pain, left Pain in limb [facility] Diagnosis Erectile dysfunction, unspecified erectile dysfunction type [facility] Diagnostic Procedure Only (Routine) - Authorized Specialty Diagnoses / Procedures Referred By Contac t Referred To Contact US IMAGING Diagnoses Erectile dysfunction, unspecified erectile dysfunction type Procedures US DOPPLER COMPLETE DUP-SCAN ARTL INGA ABDL/PEL/SCROT&/RPR ORGN [facility] Iker Funes MD [address] [place] [address] [place] [id number] Referral ID Status Reason Start Date Expiration Date Visits Requested Visits Authorized [id number] Authorized Auto-Generat ed Referral 3 11/02/2024 1 1 * Diagnostic Procedure Only (Routine) - Authorized Specialty Diagnoses / Procedures Referred By Contac t Referred To Contact US IMAGING Diagnoses Erectile dysfunction, unspecified erectile dysfunction type Procedures US SCROTUM AND CONTENTS US SCROTUM & CONTENTS Iker Funes MD [address] [place] [address] [place] [id number] Referral ID Status Reason Start Date Expiration Date Visits Requested Visits Authorized [id number] Authorized Auto-Generat ed Referral 11/02/2024 1 1 [facility] for referral (narrative)* Diagnostic Procedure Only (Routine) - Closed Specialty Diagnoses / Procedures Referred By Contac t Referred To Contact US IMAGING Diagnoses Erectile dysfunction, unspecified erectile dysfunction type Procedures US DOPPLER COMPLETE DUP-SCAN ARTL INGA ABDL/PEL/SCROT&/RPR ORGN COM Iker Funes MD [address] [place] [address] Us Imaging [facility] Referral ID Status Reason Start Date Expiration Date V isits Requested Visits Authorized [id number] Closed Auto-Generate d Referral 10/04/2023 11/02/2024 1 1 * Diagnostic Procedure Only (Routine) - Closed Specialty Diagnoses / Procedures Referred By Contac t Referred To Contact US IMAGING Diagnoses Erectile dysfunction, unspecified erectile dysfunction type Procedures US SCROTUM AND CONTENTS US SCROTUM & CONTENTS Iker Funes MD [address] [place] [address] [place] [id number] Referral ID Status Reason Start Date Expiration Date V isits Requested Visits Authorized [id number] Closed Auto-Generate d Referral 10/04/2023 11/02/2024 1 1 [facility] Summary Purpose Family History No Family History Records FoundNo Family History Records Found Advance Directives No Advanced Directives Records FoundNo Advanced Directives Records Found Health Concerns Infection Onset Date Last Indicated Resolved Time COVID-19 Rule-Out 06/27/2022 06/27/2022 Additional Source Comments (unrecognized sect ion and content) No Status Records FoundNo Status Records Found INFORMATION SOURCE (unrecogn ized section and content) DATE CREATED AUTHOR AUTHOR'S LINDY ATION 10/18/2023 [facility] Source Comments (unrecognize d section and content) In the event this informatio n is protected by the Federal Confidentiality of Alcohol and Drug Abuse Patient Records regulations: The Federal rules restrict any use of the information to criminally investigate or prosecute any alcohol or drug abuse patient.[facility] the event this information is protected by the Federal Confidentiality of Alcohol and Drug Abuse Patient Records regulations: The Federal rules restrict any use of the information to criminally investigate or prosecute any alcohol or drug abuse patient.[facility] the event this information is protected by the Federal Confidentiality of Alcohol and Drug Abuse Patient Records regulations: The Federal rules restrict any use of the information to criminally investigate or prosecute any alcohol or drug abuse patient.[facility] the event this information is protected by the Federal Confidentiality of Alcohol and Drug Abuse Patient Records regulations: The Federal rules restrict any use of the information to criminally investigate or prosecute any alcohol or drug abuse patient.[facility] the event this information is protected by the Federal Confidentiality of Alcohol and Drug Abuse Patient Records regulations: The Federal rules restrict any use of the information to criminally investigate or prosecute any alcohol or drug abuse patient.[facility] the event this information is protected by the Federal Confidentiality of Alcohol and Drug Abuse Patient Records regulations: The Federal rules restrict any use of the information to criminally investigate or prosecute any alcohol or drug abuse patient.[facility] the event this information is protected by the Federal Confidentiality of Alcohol and Drug Abuse Patient Records regulations: The Federal rules restrict any use of the information to criminally investigate or prosecute any alcohol or drug abuse patient.[facility] the event this information is protected by the Federal Confidentiality of Alcohol and Drug Abuse Patient Records regulations: The Federal rules restrict any use of the information to criminally investigate or prosecute any alcohol or drug abuse patient.[facility] Reason for Visit (unrecogniz ed section and content) Reason Comments Results Reason Comments [facility] follow up, L 1st digit cell ulitis Reason Comments Finger Pain Specialty Diagnoses / Procedures Referred By Contac t Referred To Contact [facility] Diagnoses physical Procedures office Iker Gill MD [address] [place], [place] [id number] [place] [phone] Referral ID Status Reason Start Date Expiration Date Visits Requested Visits Authorized [id number] Pending Review OON/Self Pay Override 08/14/2023 02/10/2024 1 1 Reason Comments Physical Specialty Diagnoses / Procedures Referred By Contac t Referred To Contact FAMILY MEDICINE Diagnoses physical Procedures office Iker Gill MD [address] [place] [id number] [address] Reason Comments Radiology US Specialty Diagnoses / Procedures Referred By Contac t Referred To Contact US IMAGING Diagnoses Erectile dysfunction, unspecified erectile dysfunction type Procedures US SCROTUM AND CONTENTS US SCROTUM & CONTENTS Iker Funes MD [address] [place] [address] [place] [address] Referral ID Status Reason Start Date Expiration Date V isits Requested Visits Authorized [id number] Closed Auto-Generate d Referral 10/04/2023 11/02/2024 1 1 Care Teams (unrecognized sec tion and content) Literature Professor Relationship Specialty Start Date End Date Iker Funes MD [address] [place] [id number] PCP - General Family Practice 09/01/18 Literature Professor Relationship Specialty Start Date End Date Iker Funes MD [address] [place] [id number] PCP - General Family Medicine 09/01/18 Literature Professor Relationship Specialty Start Date End Date Iker Funes MD [address] [place] [address] PCP - General Family Medicine 09/01/18 Literature Professor Relationship Specialty Start Date End Date Iker Funes MD [address] [place] [address] PCP - General Family Medicine 09/01/18 Literature Professor Relationship Specialty Start Date End Date Iker Funes MD [address] [place] [address] PCP - General Family Medicine 09/01/18 Literature Professor Relationship Specialty Start Date End Date Iker Funes MD [address] [place] [address] PCP - General Family Medicine 09/01/18 Literature Professor Relationship Specialty Start Date End Date Iker Funes MD [address] [place] [address] PCP - General Family Medicine 09/01/18 FOR RECORDS PERTAINING TO PATIENTS WHO ARE OR HAVE BEEN ENROLLED IN A CHEMICAL DEPENDENCY/SUBSTANCEABUSE PROGRAM, SOME INFORMATION MAY BE OMITTED. This clinical summary was aggregated from multiple sources. Caution should be exercised in using it in the provision of clinical care. This summary normalizes information from multiple sources, and as a consequence, information in this document may materially change the coding, format and clinical context of patient data. In addition, data may be omitted in some cases. CLINICAL DECISIONS SHOULD BE BASED ON THE PRIMARY CLINICAL RECORDS. [facility] [employer] [facility] provides no warranty or guarantee of the accuracy or completeness of information in this document.
[2023-11-10] MEDS: Famotidine 200 MG/20 ML MDV 20 MG in 0.9% Normal Saline (Pres. free 8 ML 300 MG IV (08:55)
== END 2023-11-10 10:57 | disposition home or self-care (01) ==
PROVIDERS: Emergency Provider Emergency Medicine; PCP Family Medicine; Visit Provider Emergency Medicine
DX: T78.40XA Allergy, unspecified, initial encounter (principal); R22.0 Localized swelling, mass and lump, head
CPT/HCPCS: 96374; 96375; 99283; A4216; J3490

== ENCOUNTER → 2023-11-20 | Outpatient (CLI) | payer OTHER, SELFPAY ==
--- OUTSIDE RECORDS SUMMARY | 2023-11-20 15:49 | XMS RPT_ITS | CCD ---
Author Name Unknown Address [address] [place] [address] Organization [facility] Care Team Providers Care Aerosol Supervisor Name Role Phone Iker Funes MD Primary Care Provider IKER FNUES Primary Care Unavailab IKER Basilio Attending Unavailab IKER Basilio Referring Unavailab IKER Basilio Primary Care Unavailab IKER Basilio Attending Unavailab IKER Basilio Primary Care Unavailab ANGELICA Brasher Referring Unavailable IKER FUNES Primary Care Unavailab IKER Basilio Primary Care Unavailab ANGELICA Brasher Attending Unavailable IKER FUNES Primary Care Unavailab IKER Basilio Referring Unavailab IKER Basilio Primary Care Unavailab IKER Basilio Referring Unavailab IKER Basilio Primary Care Unavailab IKER Basilio Attending Unavailab IKER Basilio Referring Unavailab le Medications Current Medications Medication Drug [...] left finger(s); Translations: [Finger pain, left] Onset: 09-13-2023 Episodic Other connective tissue disease (1 source) Other specified soft tissue disorders; Translations: [Swelling of left index finger] Onset: 09-13-2023 Episodic Other injuries and conditions due to external causes (1 source) Angioedema; Translations: [Angioneurotic edema, initial encounter] 11-10-2023 Episodic Other male genital disorders (3 sources) Male erectile dysfunction, unspecified; Translations: [Impotence of organic origin] Onset: 10-09-2023 10-04-2023 Chronic Other male genital disorders (5 sources) Cyst of epididymis; Translations: [Cyst of epididymis] Onset: 10-04-2023 10-04-2023 Episodic Other nutritional; endocrine; and metabolic disorders (5 sources) Obese class I; Translations: [Obesity, unspecified] [...] Vital Sign Value Performing Clinician Luis watson 11-10-2023 08:10-0500 Body temperature 97.39 [degF] Angelica Sanchez PA-C Work Phone: [facility] 11-10-2023 08:10-0500 Body weight 105.23 kg Angelica Athy PA-C Work Phone: [facility] 11-10-2023 08:10-0500 Diastolic blood pressure 80 mm[Hg] Angelica Athy PA-C Work Phone: [facility] 11-10-2023 08:10-0500 Heart rate 72 /min Angelica Athy PA-C Work Phone: [facility] 11-10-2023 08:10-0500 Respiratory rate 16 /min Angelica Athy PA-C Work Phone: [facility] 11-10-2023 08:10-0500 SaO2% (BldA) [Mass fraction] 98 % Angelica Athy PA-C Work Phone: [facility] 11-10-2023 08:10-0500 Systolic blood pressure 112 mm[Hg] Angelica Athy PA-C Work Phone: [facility] 10-04-2023 08:01-0500 Body weight 105.96 kg Iker Funes MD Work Phone: [facility] 10-04-2023 08:01-0500 Diastolic blood pressure 72 mm[Hg] Iker Funes MD Work Phone: [facility] 10-04-2023 08:01-0500 Heart rate 84 /min Iker Funes MD Work Phone: [facility] 10-04-2023 08:01-0500 Respiratory rate 16 /min Iker Funes MD Work Phone: [facility] 10-04-2023 08:01-0500 SaO2% (BldA) [Mass fraction] 98 % Iker Funes MD Work Phone: [facility] 10-04-2023 08:01-0500 Systolic blood pressure 116 mm[Hg] Iker Funes MD Work Phone: [facility] 09-14-2023 09:21-0400 Body temperature 97.5 [degF] Iker Funes MD Work Phone: [facility] 09-14-2023 09:21-0400 Body weight 104.51 kg Iker Funes MD Work Phone: [facility] 09-14-2023 09:21-0400 Diastolic blood pressure 76 mm[Hg] Iker Funes MD Work Phone: [facility] 09-14-2023 09:21-0400 Heart rate 84 /min Iker Funes MD Work Phone: [facility] 09-14-2023 09:21-0400 Respiratory rate 16 /min Iker Funes MD Work Phone: [facility] 09-14-2023 09:21-0400 SaO2% (BldA) [Mass fraction] 97 % Iker Funes MD Work Phone: [facility] 09-14-2023 09:21-0400 Systolic blood pressure 114 mm[Hg] Iker Funes MD Work Phone: [facility] 08-14-2023 08:21-0400 Body height 185.4 cm Iker Funes MD Work Phone: [facility] 08-14-2023 08:21-0400 Body temperature 97.9 [degF] Iker Funes MD Work Phone: [facility] 08-14-2023 08:21-0400 Body weight 105.23 kg Iker Funes MD Work Phone: [facility] 08-14-2023 08:21-0400 Diastolic blood pressure 74 mm[Hg] Iker Funes MD Work Phone: [facility] 08-14-2023 08:21-0400 Heart rate 74 /min Iker Funes MD Work Phone: [facility] 08-14-2023 08:21-0400 Respiratory rate 16 /min Iker Funes MD Work Phone: [facility] 08-14-2023 08:21-0400 Systolic blood pressure 118 mm[Hg] Iker Funes MD Work Phone: [facility] 06-27-2022 17:22-0400 Body temperature 98.29 [degF] Malou Villagomez APRN.COMB MACHINE OPERATOR Work Phone: [facility] 06-27-2022 17:22-0400 Body weight 102.51 kg Malou Villagomez APRN.COMB MACHINE OPERATOR Work Phone: [facility] 06-27-2022 17:22-0400 Diastolic blood pressure 70 mm[Hg] Malou Villagomez APRN.COMB MACHINE OPERATOR Work Phone: [facility] 06-27-2022 17:22-0400 Heart rate 86 /min Mlaou Villagomez APRN.COMB MACHINE OPERATOR Work Phone: [facility] 06-27-2022 17:22-0400 Respiratory rate 16 /min Malou Villagomez APRN.COMB MACHINE OPERATOR Work Phone: [facility] 06-27-2022 17:22-0400 SaO2% (BldA) [Mass fraction] 97 % Malou Villagomez APRN.COMB MACHINE OPERATOR Work Phone: [facility] 06-27-2022 17:22-0400 Systolic blood pressure 126 mm[Hg] Malou Villagomez APRN.COMB MACHINE OPERATOR Work Phone: [facility] Encounters Encounter Date Encounter Type Care Provider Facility Start: 11-10-2023 End: 11-10-2023 ambulatory IKER FUNES Facility:[facility] Start: 11-10-2023 End: 11-10-2023 Patient encounter procedure Angelica Wilner Sanchez PAFlorinC Work Phone: [facility] Procedures Date Procedure Procedure Detail Performing Clinician Start: 10-09-2023 Dup-scan artl inga abdl/pel/scrot&/rpr [facility]gn [facility] Iker Funes MD Work Phone: Start: 10-09-2023 Us scrotum & contents C hramna Funes MD Work Phone: Start: 10-04-2023 Lipid 1996 panel - S albaro or Plasma Iker Funes MD Work Phone: Start: 09-13-2023 Blood count complete auto&auto difrntl wbc Iker Funes MD Work Phone: Start: 06-27-2022 STREP A MOLECULAR (POC) Malou Villagomez APRN.COMB MACHINE OPERATOR Work Phone: Start: 06-08-2019 Adult depression screening assessment Malou Villagomez APRN.COMB MACHINE OPERATOR Work Phone: Start: 10-01-2018 Lipid 1996 panel - S albaro or Plasma Iker Funes MD Work Phone: Plan of Treatment Date Care Activity Detail Author Start: 10-04-2028 Lipid 1996 panel - S albaro or Plasma Lipid Screening [facility] Start: 10-04-2028 Lipid panel Lipid Screening [facility] Start: 09-01-2028 Urine microalbumin profile [facility] Start: 10-04-2024 Covid-19 Vaccine (#1) Covid-19 Vacci ne (#1) [facility] Immunizations Immunization Date Immunization Notes Care Provider Fa cility 09-01-2018 tetanus toxoid, redu jagdeep diphtheria toxoid, and acellular pertussis vaccine, adsorbed Malou Villagomez APRN.COMB MACHINE OPERATOR Work Phone: [facility] 09-01-2018 influenza virus vaccine, unspecified formulation Iker Funes MD Work Phone: [facility] Payers Date Payer Category Payer Unknown [id number] 2022 Unknown [id number] 2021 Unknown [id number] 2021 Unknown [id number] Social History Date Type Detail Facility Start: 06-27-2022 End: 10-04-2023 Tobacco smoking status NHIS Never smoked tobacco [facility] Work Phone: Start: 06-27-2022 Tobacco use and exposure Forme r smokeless tobacco user [facility] Work Phone: End: 09-11-2018 History of tobacco use Chews Tobacco [facility] Work Phone: Start: 06-27-2022 End: 08-14-2023 Alcohol intake Current drinker of alcohol (finding) [facility] Start: 06-27-2022 End: 08-14-2023 Alcohol intake [facility] Start: 09-15-2020 History SDOH Alcohol Frequency 3 [facility] Start: 09-15-2020 History SDOH Alcohol Std Drinks 1 [facility] Start: 09-15-2020 History SDOH Alcohol Binge 2 [facility] Start: 09-15-2020 History SDOH Social Connections Phone 5 [facility] Start: 09-15-2020 History SDOH Physica l Activity DPW 0 [facility] Start: 09-15-2020 Education 15 [facility] Start: 06-27-2022 Tobacco Comment 1/2-1 can per day Cl [facility] Start: 1985 Sex Assigned At Not on file [facility] Start: 09-15-2020 End: 08-14-2023 Social connection and isolation panel [facility] Do you belong to any clubs or organizations such as catholic groups, unions, fraternal or athletic groups, or school groups? No [facility] Are you now , , , , never or living with a partner? [facility] How often to you hav e a drink containing alcohol? 2-4 times a month [facility] How many standard dr inks containing alcohol do you have on a typical day? 1 or 2 [facility] How often do you hav e 6 or more drinks on 1 occasion? Less than monthly [facility] How hard is it for y ou to pay for the very basics like food, housing, medical care, and heating Not hard at all [facility] Do you feel stress - tense, restless, nervous, or anxious, or unable to sleep at night because your mind is troubled all the time - these days [OSQ] Very much [facility] (I/We) worried wheerin er (my/our) food would run out before (I/we) got money to buy more. Never true [facility] Start: 10-04-2023 Tobacco use and exposure User of smokeless tobacco [facility] Start: 10-04-2023 End: 11-10-2023 Alcohol intake Ex-drinker (finding) [facility] Clinical Notes 06-27-2022 to 11-10-2023 Angelica Sanchez PA-C - 11/10/2023 8:21 AM ESTTelephone Encounter - Christine SavageDONYA - 10/15/2023 3:09 PM ESTTelephone Encounter - MaeveChristine blumDONYA - 10/15/2023 3:00 PM EST Note Date & Type Note Facility 11-10-2023 Note HNO ID: [id number] Author: Angelica Sanchez PA-C Service: ? Author Type: Physician Relief Worker Type: Progress Notes Filed: 11/10/2023 8:24 AM Note Text: This note was created using [employer]. Subjective Stormy Gonzalez is a 38 year old male. HPI Patient presents with left-sided facial swelling. Denies any pain. There is no rash. He states he woke up at 530 noticed the left side of his face was swollen. This is extending into his lips over the past hour. No trouble breathing or swelling in the back of his throat. He denies any new medications. No new soaps. No new lotions or detergents. No new foods. No recent travel. He is not on any TANVI inhibitor's. He has not had this previously. No dental pain. Review of Systems Constitutional: Negative. HENT: Positive for facial swelling. Lip swelling Respiratory: Negative. Cardiovascular: Negative. Gastrointestinal: Negative. Musculoskeletal: Negative. All other systems reviewed and are negative. PAST MEDICAL HISTORY Diagnosis Date Epididymal cyst Headache possible cluster Obesity (BMI 30.0-34.9) Current Outpatient Medications Medication Sig Dispense Refill sildenafil (VIAGRA) 50 mg tablet Take 1 tablet by mouth once daily as needed (30-60 minutes prior to intercourse). Take 30-60 minutes before sexual activity. 12 tablet 0 No current facility-administered medications for this visit. PAST SURGICAL HISTORY Procedure Laterality Date NONE FAMILY HISTORY Problem Relation Age of Onset Headache Mother Heart Father 61 [place] Diabetes Paternal Grandfather No Known Problems Son No Known Problems Son Social History Tobacco Use Smoking status: Never Smokeless tobacco: Current Types: Chew Tobacco comments: 1/2-1 can per day Vaping Use Vaping Use: Never used Substance Use Topics Alcohol use: Not Currently Alcohol/week: 8.0 standard drinks of alcohol Types: 8 Cans of Beer (12oz) per week Drug use: No Objective BP 112/80 Pulse 72 Temp 36.3 ?C (97.4 ?F) Resp 16 Wt 105.2 kg (232 lb) SpO2 98% BMI 30.61 kg/m? Physical Exam Vitals reviewed. Constitutional: Appearance: Normal appearance. HENT: Head: Atraumatic. Comments: Patient has large swelling of the mucosa of the left side of the mouth and face extending into his upper and lower lips consistent with angioedema. No Swelling in the posterior oropharynx or trouble breathing. Skin: General: Skin is warm and dry. Neurological: Mental Status: He is alert. Assessment and Plan ASSESSMENT/PLAN: 1. Angioedema, initial encounter - ICD9: 995.1, ICD10: T78.3XXA Patient has acute angioedema that has been worsening over the past hour. Recommended he be seen in the emergency department. He will go to [facility] ED across the street. He is not in any respiratory distress. Patient agreeable with plan. Angelica Sanchez PA-C [facility] 11-10-2023 History of Presen t illness Narrative Images from the original note were not included. This note was created using [employer]. Subjective Stormy Gonzalez is a 38 year old male. HPI Patient presents with left-sided facial swelling. Denies any pain. There is no rash. He states he woke up at 530 noticed the left side of his face was swollen. This is extending into his lips over the past hour. No trouble breathing or swelling in the back of his throat. He denies any new medications. No new soaps. No new lotions or detergents. No new foods. No recent travel. He is not on any TANVI inhibitor's. He has not had this previously. No dental pain. Review of Systems Constitutional: Negative. HENT: Positive for facial swelling. Lip swelling Respiratory: Negative. Cardiovascular: Negative. Gastrointestinal: Negative. Musculoskeletal: Negative. All other systems reviewed and are negative. PAST MEDICAL HISTORY Diagnosis Date Epididymal cyst Headache possible cluster Obesity (BMI 30.0-34.9) Current Outpatient Medications Medication Sig Dispense Refill sildenafil (VIAGRA) 50 mg tablet Take 1 tablet by mouth once daily as needed (30-60 minutes prior to intercourse). Take 30-60 minutes before sexual activity. 12 tablet 0 No current facility-administered medications for this visit. PAST SURGICAL HISTORY Procedure Laterality Date NONE FAMILY HISTORY Problem Relation Age of Onset Headache Mother Heart Father 61 [place] Diabetes Paternal Grandfather No Known Problems Son No Known Problems Son Social History Tobacco Use Smoking status: Never Smokeless tobacco: Current Types: Chew Tobacco comments: 1/2-1 can per day Vaping Use Vaping Use: Never used Substance Use Topics Alcohol use: Not Currently Alcohol/week: 8.0 standard drinks of alcohol Types: 8 Cans of Beer (12oz) per week Drug use: No Objective BP 112/80 Pulse 72 Temp 36.3 C (97.4 F) Resp 16 Wt 105.2 kg (232 lb) SpO2 98% BMI 30.61 kg/m Physical Exam Vitals reviewed. Constitutional: Appearance: Normal appearance. HENT: Head: Atraumatic. Comments: Patient has large swelling of the mucosa of the left side of the mouth and face extending into his upper and lower lips consistent with angioedema. No Swelling in the posterior oropharynx or trouble breathing. Skin: General: Skin is warm and dry. Neurological: Mental Status: He is alert. Assessment and Plan ASSESSMENT/PLAN: 1. Angioedema, initial encounter - ICD9: 995.1, ICD10: T78.3XXA Patient has acute angioedema that has been worsening over the past hour. Recommended he be seen in the emergency department. He will go to [facility] ED across the street. He is not in any respiratory distress. Patient agreeable with plan. Angelica Sanchez PA-C documented in this encounter [facility] 10-15-2023 Miscellaneous Notes Phoned patient and reviewed results and recommendations with him. Patient voiced understanding. ----- Message from Iker Funes MD sent at 10/15/2023 2:52 PM EST ----- Normal testosterone level. Rheumatologic workup negative. Autoimmune disease testing negative. Other labs normal. Continue treatment as discussed in office. If finger swelling persists, would refer to rheumatology for further workup and treatment. documented in this encounter [facility] 10-09-2023 Note HNO ID: [id number] Author: Sarika Fox RDMS Service: ? Author Type: Faculty Research Physician Type: Progress Notes Filed: 10/09/2023 7:45 AM Note Text: Radiology Service Progress Note PATIENT NAME: Stormy Gonzalez DATE OF SERVICE: October 09, 2023 [...] Fox RDMS October 09, 2023 7:45 AM [facility] 10-09-2023 History of Presen t illness Narrative Radiology Service Progress Note PATIENT NAME: Stormy Gonzalez DATE OF SERVICE: October 09, 2023 [...] 2023 7:45 AM documented in this encounter [facility] 10-04-2023 Note HNO ID: [id number] Author: Iker Funes MD Service: ? Author Type: Physician Type: Progress Notes Filed: 10/05/2023 4:20 PM Note Text: Chief Complaint Patient presents with: Physical HPI Stormy Gonzalez is a 38 year old male [...] of Onset Headache Mother Heart Father 61 [place] Diabetes Paternal Grandfather Patient Allergies ALLERGIES No [...] and No supraclavi (more content not included)... [facility] 10-04-2023 History of Presen t illness Narrative Chief Complaint Patient presents with: Physical HPI Stormy Gonzalez is a 38 year old male [...] of Onset Headache Mother Heart Father 61 [place] Diabetes Paternal Grandfather Patient Allergies ALLERGIES No [...] Abs Lymph 1.00 - 4.00 k/uL 1.91 [place]% % 10.1 Abs [place] <0.87 k/uL 0.59 Eosin% % 2.9 Abs [...] Iker Funes MD documented in this encounter [facility] 09-16-2023 Miscellaneous Notes Phoned patient and reviewed results and recommendations with him. Patient voiced understanding. ----- Message from Iker Funes MD sent at 09/14/2023 8:02 AM EDT ----- Blood work is negative for signs of infection, inflammation, or gout. Continue prednisone as prescribed. Call if swelling and pain persists. documented in this encounter [facility] 09-14-2023 Note HNO ID: [id number] Author: Iker Funes MD Service: ? Author Type: Physician Type: Progress Notes Filed: 09/14/2023 9:26 AM Note Text: Chief Complaint Patient presents with: Finger Pain HPI Stormy Gonzalez is a 38 year old male [...] of Onset Headache Mother Heart Father 61 [place] Diabetes Paternal Grandfather Patient Allergies ALLERGIES No [...] ICD10: M79.89 See above. Iker Funes MD [facility] 09-14-2023 History of Presen t illness Narrative Chief Complaint Patient presents with: Finger Pain HPI Stormy Gonzalez is a 38 year old male [...] of Onset Headache Mother Heart Father 61 [place] Diabetes Paternal Grandfather Patient Allergies ALLERGIES No [...] Iker Funes MD documented in this encounter [facility] 08-14-2023 Note HNO ID: [id number] Author: Iker Funes MD Service: ? Author Type: Physician Type: Progress Notes Filed: 08/14/2023 8:49 AM Note Text: Chief Complaint Patient presents with: [facility] follow up, L 1st digit cellulitis HPI Stormy Gonzalez is a 38 year old male [...] of Onset Headache Mother Heart Father 61 [place] Diabetes Paternal Grandfather Patient Allergies ALLERGIES No [...] for recheck in prn Iker Funes MD [facility] 08-14-2023 History of Presen t illness Narrative Chief Complaint Patient presents with: [facility] Care follow up, L 1st digit cellulitis HPI Stormy Gonzalez is a 38 year old male [...] of Onset Headache Mother Heart Father 61 [place] Diabetes Paternal Grandfather Patient Allergies ALLERGIES No [...] Iker Funes MD documented in this encounter [facility] 08-09-2023 Note HNO ID: [id number] Author: Angelica Sanchez PA-C Service: ? Author Type: Physician Relief Worker Type: Progress Notes Filed: 08/09/2023 5:36 PM Note Text: This note was created using [employer]. Subjective Stormy Gonzalez is a 38 year old male. [...] of Onset Headache Mother Heart Father 61 [place] Diabetes Paternal Grandfather Social History Tobacco Use [...] XR DIGIT GENERAL 3V FRONTAL/LAT/OBL LEFT Angelica Sanchez PA-C [facility] 08-09-2023 Note HNO ID: [id number] Author: Jen Patten RT(R) Service: ? Author Type: Faculty Research Physician Type: Progress Notes Filed: 08/09/2023 4:55 PM Note Text: Radiology Service Progress Note PATIENT NAME: Stormy Gonzalez DATE OF SERVICE: August 09, 2023 [...] PERIPHERAL IV DATA: Not applicable SIGNED BY: Jen Patten, RT(R) August 09, 2023 4:46 PM [facility] 06-29-2022 Miscellaneous Notes Images from the original note were not included. Patient calling asking for his COVID test results. COVID WITH FLUA+B, ROUTINE Order: [id number] Status: Final result Visible to patient: Yes (not seen) Dx: Sore throat; At increased risk of exp... Specimen Information: UPPER RESPIRATORY TRACT SWAB; Nasal Swab 1 Result Note 1 Patient Communication Component Ref Range & Units 2 d ago COVID 19 Result Not Detected SARS-CoV-2 (Agent of COVID-19) Not Detected by RT-PCR or equivalent method. Comment: mario [id number] (EMILIANO)_EUA This test was developed and its performance characteristics determined by [facility]'s [facility] [place]. This test has been authorized by FDA under an Emergency Use Authorization (EUA). This test has been validated in accordance with the FDA's Guidance Document Policy for Diagnostics Testing in Laboratories Certified to Perform High Complexity Testing under CLIA prior to Emergency use Authorization for Coronavirus Disease 2019 during the Public Health Emergency issued on January 09, 2020. Test performed by [facility], [facility] [place], [address] [place] [address]. Influenza A PCR Negative for Influenza A [...] care provider or schedule a visit with [facility]. Written by Emi Cee PA-C on 06/28/2022 8:21 AM EDT Result Information Flag: Normal Status: Final result (Resulted: 06/28/2022 7:17 AM) Provider Status: Reviewed Questions Order Question Answer Symptomatic: Yes Date of symptom onset: 06/25/2022 First Test: No Employed in healthcare: No Hospitalized: No Resident in a congregate care setting (nursing homes, psychiatric treatment facilities, group homes, board and care homes, homeless snf, foster care or other setting): No : No Is patient a household member of a [facility] Caregiver/Employee? Collection Question Answer Bedded in ICU: COVID WITH FLUA+B, ROUTINE: Result Notes Emi Cee PA-C 06/28/2022 8:21 AM EDT Patient notified of negative COVID and Influenza test. Patient Release Status: This result is viewable by the patient in [employer]. Routing History Priority Sent On From To Message Type 06/27/2022 5:42 PM Interface, Results II P [facility] Express Care Provider Pool Results View [employer] Info COVID WITH FLUA+B, ROUTINE (Order #[id number]) on 06/27/22 CAP/CLIA/Joint Commission Regulatory Result Report COVID WITH FLUA+B, ROUTINE (Order #[id number]) on 06/27/22 COVID WITH FLUA+B, ROUTINE: Patient Communication Edit Comments Add Notifications You tested negative for COVID and Influenza. If you were tested because you were having symptoms, please monitor these symptoms and for any worrisome symptoms, please call your primary care provider or schedule a visit with [facility]. Written by Emi Cee PA-C on 06/28/2022 8:21 AM EDT Went over results, notes from express care provider with understanding. documented in this encounter [facility] 06-27-2022 History of Presen t illness Narrative CC: Patient presents with: Head Congestion: cough and sore throat x 3 days HPI: Stormy Gonzalez is a 37 year old male [...] of Onset Headache Mother Heart Father 61 [place] Diabetes Paternal Grandfather Social History Tobacco Use [...] Patient agreeable to treatment plan. Malou Villagomez APRN.DORI documented in this encounter [facility] documented in this encounter [facility] note* Diagnosis Cellulitis of left finger- Primary [facility] Diagnosis Finger pain, left- Primary Pain in limb Swelling of left index finger [facility] Diagnosis Annual physical exam- Primary Routine general medical examination at a health care facility Obesity (BMI 30.0-34.9) Obesity, unspecified Epididymal cyst Other specified disorder of male genital organs Erectile dysfunction, unspecified erectile dysfunction type Swelling of left index finger Finger pain, left Pain in limb [facility] Diagnosis Erectile dysfunction, unspecified erectile dysfunction type documented in this encounter [facility] note* Diagnosis Angioedema, initial encounter- Primary documented in this encounter [facility] for referral (narrative)* Diagnostic Procedure Only (Routine) - Authorized Specialty Diagnoses / Procedures Referred By Contac t Referred To Contact [facility] Diagnoses Erectile dysfunction, unspecified erectile dysfunction type Procedures US DOPPLER COMPLETE DUP-SCAN ARTL INGA ABDL/PEL/SCROT&/RPR ORGN [facility] Iker Funes MD [address] [place] [address] [place] [address] Referral ID Status Reason Start Date Expiration Date Visits Requested Visits Authorized [id number] Authorized Auto-Generat ed Referral 3 11/02/2024 1 1 * Diagnostic Procedure Only (Routine) - Authorized Specialty Diagnoses / Procedures [facility] To [facility] Diagnoses Erectile dysfunction, unspecified erectile dysfunction type Procedures US SCROTUM AND CONTENTS US SCROTUM & CONTENTS Iker Funes MD [address] [place] [id number] [id number] Referral ID Status Reason Start Date Expiration Date Visits Requested Visits Authorized [id number] Authorized Auto-Generat ed Referral 3 11/02/2024 1 1 [facility] for referral (narrative)* Diagnostic Procedure Only (Routine) - Closed Specialty Diagnoses / Procedures [facility] To [facility] Diagnoses Erectile dysfunction, unspecified erectile dysfunction type Procedures US DOPPLER COMPLETE DUP-SCAN ARTL INGA ABDL/PEL/SCROT&/RPR ORGN [facility] Iker Funes MD [facility] [place] [address] [place] [address] Referral ID Status Reason Start Date Expiration Date V isits Requested Visits Authorized [id number] Closed Auto-Generate d Referral 10/04/2023 11/02/2024 1 1 * Diagnostic Procedure Only (Routine) - Closed Specialty Diagnoses / Procedures Referred By Contac t Referred To Contact US IMAGING Diagnoses Erectile dysfunction, unspecified erectile dysfunction type Procedures US SCROTUM AND CONTENTS US SCROTUM & CONTENTS Iker Funes MD [address] [place] [address] [place] [address] Referral ID Status Reason Start Date Expiration Date V isits Requested Visits Authorized [id number] Closed Auto-Generate d Referral 10/04/2023 11/02/2024 1 1 [facility] Summary Purpose Family History No Family History Records FoundNo Family History Records Found Advance Directives No Advanced Directives Records FoundNo Advanced Directives Records Found Health Concerns Infection Onset Date Last Indicated Resolved Time COVID-19 Rule-Out 06/27/2022 06/27/2022 Additional Source Comments (unrecognized sect ion and content) No Status Records FoundNo Status Records Found INFORMATION SOURCE (unrecogn ized section and content) DATE CREATED AUTHOR AUTHOR'S ORGANIZ ATION 11/11/2023 [facility] Source Comments (unrecognize d section and content) In the event this informatio n is protected by the Federal Confidentiality of Alcohol and Drug Abuse Patient Records regulations: The Federal rules restrict any use of the information to criminally investigate or prosecute any alcohol or drug abuse patient.[facility] event this information is protected by the Federal Confidentiality of Alcohol and Drug Abuse Patient Records regulations: The Federal rules restrict any use of the information to criminally investigate or prosecute any alcohol or drug abuse patient.[facility] event this information is protected by the Federal Confidentiality of Alcohol and Drug Abuse Patient Records regulations: The Federal rules restrict any use of the information to criminally investigate or prosecute any alcohol or drug abuse patient.[facility] event this information is protected by the Federal Confidentiality of Alcohol and Drug Abuse Patient Records regulations: The Federal rules restrict any use of the information to criminally investigate or prosecute any alcohol or drug abuse patient.[facility] event this information is protected by the Federal Confidentiality of Alcohol and Drug Abuse Patient Records regulations: The Federal rules restrict any use of the information to criminally investigate or prosecute any alcohol or drug abuse patient.[facility] event this information is protected by the Federal Confidentiality of Alcohol and Drug Abuse Patient Records regulations: The Federal rules restrict any use of the information to criminally investigate or prosecute any alcohol or drug abuse patient.[facility] event this information is protected by the Federal Confidentiality of Alcohol and Drug Abuse Patient Records regulations: The Federal rules restrict any use of the information to criminally investigate or prosecute any alcohol or drug abuse patient.[facility] the event this information is protected by the Federal Confidentiality of Alcohol and Drug Abuse Patient Records regulations: The Federal rules restrict any use of the information to criminally investigate or prosecute any alcohol or drug abuse patient.[facility] event this information is protected by the Federal Confidentiality of Alcohol and Drug Abuse Patient Records regulations: The Federal rules restrict any use of the information to criminally investigate or prosecute any alcohol or drug abuse patient.[facility] Reason for Visit (unrecogniz ed section and content) Reason Comments Results Reason Comments Express Care follow up, L 1st digit cell ulitis Reason Comments Finger Pain Specialty Diagnoses / Procedures Referred By Payal sommer Referred To Contact [facility] Diagnoses physical Procedures office Iker Gill MD [address] [place] [address] [facility] [address] [place] [address] Referral ID Status Reason Start Date Expiration Date Visits Requested Visits Authorized [id number] Pending Review OON/Self Pay Override 08/14/2023 02/10/2024 1 1 Reason Comments Physical Specialty Diagnoses / Procedures Referred By Contac t Referred To Contact [facility] Diagnoses physical Procedures office visiit Iker Funes MD [address] [place] [address] [facility] [address] [place] [address] Reason Comments Radiology US Specialty Diagnoses / Procedures Referred By Contac t Referred To Contact US IMAGING Diagnoses Erectile dysfunction, unspecified erectile dysfunction type Procedures US SCROTUM AND CONTENTS US SCROTUM & CONTENTS Iker Funes MD [address] [place] [address] [place] [address] Referral ID Status Reason Start Date Expiration Date V isits Requested Visits Authorized [id number] Closed Auto-Generate d Referral 10/04/2023 11/02/2024 1 1 Reason Comments Facial Swelling Left side numb and s wollen, woke up this morning with it Care Teams (unrecognized sec tion and content) Aerosol Supervisor Relationship Specialty Start Date End Date Iker Funes MD [address] [place], [place] [address] PCP - General Family Practice 09/01/18 Aerosol Supervisor Relationship Specialty Start Date End Date Iker Funes MD [address] [place], [place] [id number] PCP - General Family Medicine 09/01/18 Aerosol Supervisor Relationship Specialty Start Date End Date Iker Funes MD [address] [place], [place] [id number] PCP - General Family Medicine 09/01/18 Aerosol Supervisor Relationship Specialty Start Date End Date Iker Funes MD [address] [facility] [place] [address] PCP - General [facility] 09/01/18 Aerosol Supervisor Relationship Specialty Start Date End Date Iker Funes MD [address] [place] [address] PCP - General [facility] 09/01/18 Aerosol Supervisor Relationship Specialty Start Date End Date Iker Funes MD [address] [place] [address] PCP - [facility] 09/01/18 Aerosol Supervisor Relationship Specialty Start Date End Date Iker Funes MD [address] [place] [address] PCP - [facility] 09/01/18 Aerosol Supervisor Relationship Specialty Start Date End Date Iker Funes MD [address] [place] [address] PCP - General [facility] Medicine 09/01/18 FOR RECORDS PERTAINING TO PATIENTS [...] BE BASED ON THE PRIMARY CLINICAL RECORDS. [employer] [facility]. provides no warranty or guarantee of the accuracy or completeness of information in this document.
[2023-11-20 16:29] LABS: Erythrocyte Sedimentation Rate 6 mm/hr (0-20)
== END | disposition home or self-care (01) ==
LOC: LABSPEC 15:19
PROVIDERS: PCP Family Medicine; Referring Provider Family Medicine; Visit Provider Family Medicine
DX: L50.9 Urticaria, unspecified (principal)
CPT/HCPCS: 85652; 86140

== ENCOUNTER → 2024-07-31 | Outpatient (CLI) | payer OTHER, SELFPAY ==
--- NOTE | 2024-07-31 09:48 | RAD_ITS ---
INDICATION: STRAIN OF SHOULDER EXAMINATION/TECHNIQUE: X-RAY - RIGHT XR Shoulder Min 2 Views 4 VIEWS COMPARISON: No relevant prior comparison study available FINDINGS: SOFT TISSUES: No soft tissue swelling or gas. No radiopaque foreign body. BONES/JOINTS: No acute fracture or subluxation.. Normal alignment. Preservation of the joint space.. No sclerotic or destructive changes observed. RAD/Shoulder min 2 Views IMPRESSION: Negative. Electronically Signed: Miguel Manzano MD at 17:05 EDT ,
--- NOTE | 2024-07-31 09:48 | RAD_ITS ---
INDICATION: STRAIN OF SHOULDER EXAMINATION/TECHNIQUE: X-RAY - LEFT XR Shoulder Min 2 Views 4 VIEWS COMPARISON: No relevant prior comparison study available FINDINGS: SOFT TISSUES: No soft tissue swelling or gas. No radiopaque foreign body. BONES/JOINTS: No acute fracture or subluxation.. Normal alignment. Preservation of the joint space.. No sclerotic or destructive changes observed. RAD/Shoulder min 2 Views IMPRESSION: Negative. Electronically Signed: Miguel Manzano MD at 17:05 EDT ,
== END | disposition home or self-care (01) ==
LOC: RAD 09:46
PROVIDERS: PCP Family Medicine
DX: S46.912A Strain of unspecified muscle, fascia and tendon at shoulder and upper arm level, left arm, initial encounter (principal); S46.911A Strain of unspecified muscle, fascia and tendon at shoulder and upper arm level, right arm, initial encounter; X58.XXXA Exposure to other specified factors, initial encounter
CPT/HCPCS: 73030